=== PATIENT | male | born 1955 | race Caucasian/White ===

== ENCOUNTER 2017-02-07 06:22 | Day surgery (SDC) | payer OTHER ==
[~2017-02-07] VITALS: Ht 177.8 cm; Wt 97.5 kg
[~2017-02-07 06:22] MED LIST: ASPIRIN ADULT L81 M1 PO; LOPRESSOR50 MG PO; LOSARTAN POTASS50 MG PO; METOPROLOL TART25 MG PO; NORCO1 TA1 PO; PRAVASTATIN SOD20 MG PO; PROAIR HFA IN; VISTARIL25 MG PO
--- NOTE | 2017-02-07 06:52 | NUR ---
PRE OP INSTRUCTIONS GIVEN AND SAFETY ISSUES DISCUSSED PT AND SPOUSE HAD QUESTIONS ANSWERED PT CONFIRMED PROCEDURE PT SIGNED CONSENT
--- NOTE | 2017-02-07 08:20 | Provider's Discharge Care Plan ---
Problem, Goal, Plan Problem List 1. Rectal polyp 2. Diverticulosis
--- NOTE | 2017-02-07 08:20 | Provider's Discharge Care Plan ---
Problem, Goal, Plan Problem List 1. Rectal polyp 2. Diverticulosis
--- NOTE | 2017-02-07 08:22 | NUR ---
rec'd from or; spont resp. HOB ELEVATED 30 DEGREES. AWAKE AND TALKATIVE
--- NOTE | 2017-02-07 08:50 | OPERATIVE REPORT ---
DATE OF SURGERY: 02/07/2017 SURGEON: Frantz Paula MD PREOPERATIVE DIAGNOSIS: 1. Colon cancer risk POSTOPERATIVE DIAGNOSES: 1. Rectal polyps x2 2. Diverticulosis PROCEDURE PERFORMED: 1. Colonoscopy with snare polypectomies ANESTHESIA: Total IV general. INDICATIONS: The patient is a 61-year-old man presenting for repeat screening colonoscopy. SURGICAL TECHNIQUE: The patient was taken to the endoscopy suite, where total IV general was administered and the patient was placed in the left lateral decubitus position. A well-lubricated colonoscope was advanced the length colon under direct vision. Multiple diverticula were seen in the sigmoid and a sessile polyp was noted at about 10 cm in the rectum during insertion. During withdrawal, the entire colon was inspected and the same findings were noted. There is also a 3 mm polyp at about 15 cm at the top of the rectum. A cautery snare was used to encircle this small polyp and transect it but fulguration left very little tissue to recover. The larger polyp at 4 mm was first sampled with the biopsy forceps to ensure the proper recovery of tissue, that was not cautery destroyed, and the remainder of the polyp at the base was fulgurated with electrocautery. There were no polyps seen on retroflexed view. The patient left in good condition.
--- NOTE | 2017-02-07 08:56 | NUR ---
PT RETURNED FROM PACU PASSING FLATUS NO C/O DISCOMFORT
[2017-02-07 09:29] VITALS: BP 138/82
--- NOTE | 2017-02-07 09:37 | NUR ---
PT ASKING TO GO HOME REVIEWED DISCHARGE INSTRUCTIONS VERBAL AND WRITTEN PT AND SPOUSE EXPRESSED UNDERSTANDING PT DISCHARGED AMBULATORY ACCOMPANIED BY SPOUSE PT HAS NO COMPLAINTS
== END 2017-02-07 09:40 | disposition home or self-care (01) ==
LOC: OR SRH 06:22 → SCU SRH 06:23 → OR SRH 07:30
PROVIDERS: Surgery
PROC: 0DBP8ZX Excision of Rectum, Via Natural or Artificial Opening Endoscopic, Diagnostic (ICD-10-PCS; principal; 2017-02-07 07:30)
DX: Z12.11 Encounter for screening for malignant neoplasm of colon (principal); K62.1 Rectal polyp; K57.30 Diverticulosis of large intestine without perforation or abscess without bleeding; I10 Essential (primary) hypertension
CPT/HCPCS: 29229; 29240; 50004; 60001; 82900; 82944; 83526